=== PATIENT | female | born 1955 | race Caucasian/White ===

== ENCOUNTER 2020-04-17 13:54 | Emergency (ER) | payer SELFPAY | END 2020-04-17 14:28 | disposition home or self-care (01) | LOC: MADERS 13:54 | DX: R05 Cough (principal); K21.9 Gastro-esophageal reflux disease without esophagitis; I10 Essential (primary) hypertension; G62.9 Polyneuropathy, unspecified; F41.9 Anxiety disorder, unspecified; F32.9 Major depressive disorder, single episode, unspecified; Z79.899 Other long term (current) drug therapy | CPT/HCPCS: 99283 ==

== ENCOUNTER 2024-05-22 16:22 | Emergency (ER) | payer MEDICARE ==
[2024-05-22] MEDS ORDERED: Benzonatate 100 MG CAP ONE (16:38)
[2024-05-22] MEDS ORDERED: Ibuprofen 800 MG TAB ONE (16:38)
== END 2024-05-22 17:28 | disposition home or self-care (01) ==
LOC: MADERS 16:22
DX: J02.9 Acute pharyngitis, unspecified (principal); I10 Essential (primary) hypertension
CPT/HCPCS: 71045; 87081; 87428; 87430